=== PATIENT | male | born 1945 | race Caucasian/White ===

== ENCOUNTER → 2021-05-18 07:57 | Outpatient (CLI) | payer MEDICARE, OTHER, SELFPAY ==
[2021-05-18 11:10] LABS: COVID19 -Nasal RAPID Negative (Negative)
== END ==
PROVIDERS: Visit Provider Specialist
DX: Z20.822 Contact with and (suspected) exposure to COVID-19 (principal)
CPT/HCPCS: 87635; C9803

== ENCOUNTER 2021-05-21 09:59 | Day surgery (SDC) | payer MEDICARE, OTHER, SELFPAY ==
[2021-05-15 09:37] VITALS: BMI 25.3
[2021-05-21] VITALS (9 sets, daily range): BP systolic 144–162; BP diastolic 51–66; PULSE 66–84; RESP 12–16; TEMP 36.2–36.6; O2SAT 96–100; BMI 25.7
[2021-05-21] MEDS: LACTATED RINGERS 1,000 ML 42 ML IV (11:44)
--- NOTE | 2021-05-21 13:10 | PM.PREOP ---
Pre-operative Note Interval Note History & Physical reviewed/Exam performed by Physician: Yes Changes to H&P: No
[2021-05-21] MEDS: CEFAZOLIN 1 GM VIAL 2 GM IV (13:49)
[2021-05-21] MEDS: BUPIVACAINE 0.25% (PF) VIAL 30 ML INJ (14:08)
[2021-05-21] MEDS: EPINEPHrine 1 MG/ML 0.15 MG IM (14:09)
[2021-05-21] MEDS: BUPIVACAINE LIPOSOME 266 MG/20 ML VIAL INJ (14:09)
--- NOTE | 2021-05-21 14:10 | SUR.OPER ---
Supine on padded OR bed, head on pillow, arms secured on padded arm boards at <90 degrees abduction, legs uncrossed, safety belt at thigh, tape over blanket over lower legs.
--- NOTE | 2021-05-21 16:03 | P.OP_ITS ---
Operative Date/Time/Diagnoses Date of procedure: 05/21/21 Time of procedure: 16:03 Pre-op diagnosis: Right indirect inguinal hernia Post-op diagnosis: other (Also large direct inguinal hernia) Procedure & Clinicians Procedure: 1. Repair of right indirect and direct inguinal hernia with mesh Same procedure as scheduled: No (Addition extensive reduction an intraperitoneal is a neri of direct inguina) Indications: 1. Symptomatic right inguinal hernia Surgeon: Viridiana Damico Click Yes if Unassisted: Yes Anesthesia Type: General and Local (1.33% Exparel) Operative Notes Findings: 1. Indirect hernia sac extending to external ring. 2. The entire inguinal floor was disrupted with separation of transversalis and a black musculature. Closure Type: primary Specimen(s): none sent Prosthetic devices, grafts, tissues, transplants, or devices: 3 in x 6 in rectangle Bard polypropylene mesh. Estimated Blood Loss (mL): 3 Blood products transfused: none Tourniquet time (min): 0 Procedure in detail: The patient was positioned supine and was administered general anesthesia. The abdomen, genitalia, and groin were then prepped and draped in sterile fashion. Local anesthetic of 0.25% Marcaine with epinephrine was then used to infiltrate the skin over the right inguinal canal. An oblique incision was made over the canal. Blunt cautery dissection were then utilized to separate the abdominal wall fat and Mary's fascial layer, eventually exposing the anterior surface of the rectus fascia. The rectus fascia was then divided longitudinally parallel to its fibers along the canal. Meticulous want, sharp, and cautery dissection were then utilized to identify important landmarks. The ileal inguinal nerve was identified carefully mobilized and reflected superiorly prior to retraction of the external oblique fascia. Spermatic cord was then carefully from a large indirect hernia sac which was then reflected to level of the internal ring. The entire posterior fl oor of the canal was disrupted with resultant large direct inguinal hernia. Once the cord was mobilized to the level internal ring, the indirect sac freed completely, and the entire hernia sac was positioned within the abdominal cavity proper without division of the peritoneal sac. Next, the transfer sales and obliques musculature was carefully reapproximated with running 2-0 Monocryl in 2 distinct layers to Poupart's ligament posteriorly. Next, a 3 in x 6 in rectangular polypropylene mesh was selected. It was then tailored and trimmed appropriately to lie over the anatomic repair described above. It was secured in place with interrupted 3-0 Monocryl. Lateral crossing tails were created and a stellate aperture was created to accommodate the cord at the internal ring. Gentle retraction was then applied to the right testicle and the cord was repositioned anatomically within the right inguinal canal. The overlying rectus fascia was then closed with running 2-0 Monocryl. Mary's fa scia was reapproximated using the same suture in running technique. Local anesthetic was infiltrated into the fascial layers as well as the skin edges. The skin was reapproximated with a running subcuticular 4-0 Monocryl. A piece of Telfa gauze dressing was then tailored appropriately in applied over the incision line proper. Over this, a medium Op site dressing was then applied for a Bioclusive finish. The patient was then awakened, transferred to [facility], and transferred to recovery in stable condition. Complications: none Post-operative Condition: stable Disposition: PACU Plan for aftercare: Discharge home
[2021-05-21] MEDS: ACETAMINOPHEN 325 MG TABLET 650 MG PO (16:34)
[2021-05-21] MEDS: OXYCODONE IR 5 MG TABLET PO (16:35)
--- NOTE | 2021-05-21 16:53 | SUR.PHASEI ---
[id number] Patient transferred to [facility] to [facility] with SBAR report at bedside.
== END 2021-05-21 17:23 | disposition home or self-care (01) ==
PROVIDERS: Referring Provider Specialist; Visit Provider Specialist
PROC: (CPT 49505; principal; 2021-05-21 11:45)
DX: K40.90 Unilateral inguinal hernia, without obstruction or gangrene, not specified as recurrent (principal); N40.1 Benign prostatic hyperplasia with lower urinary tract symptoms; N13.8 Other obstructive and reflux uropathy
CPT/HCPCS: 49505; 82962; C1781; C9290; J0171; J0690; J1100; J2405; J2704; J3010